=== PATIENT | female | born 1930 | race Asian ===

== ENCOUNTER 2018-12-10 02:35 | Inpatient (IN) | payer MEDICARE, MEDICAID ==
[~2018-12-10] VITALS: Ht 157.5 cm; Wt 60.3 kg
[2018-12-10 02:35] VITALS: BP 134/62
--- NOTE | 2018-12-10 02:35 | NUR ---
ED Nurse Note: Pt was BIBA from SNF. C/O fever today. Temp 100.8 at this time, Bp 134/62, Hr 114. Pt had Hx of left hip fracture few days ago which has bruises noted on left thigh. Pt is awake with drawsy at this time.
[2018-12-10] MEDS ORDERED: ASPIR 8181 MG ORAL (02:44)
[2018-12-10] MEDS ORDERED: BACLOFEN10 MG ORAL (02:44)
[2018-12-10] MEDS ORDERED: Acetaminophen 650 MG SUPP RECTAL ONE (02:45)
--- NOTE | 2018-12-10 02:48 | NUR ---
ED Nurse Note: Blood sample collected and sent to Lab.
[2018-12-10] MEDS ORDERED: VITAMIN D1000 UNI1 ORAL (02:50)
[2018-12-10] MEDS ORDERED: SINGULAIR10 MG ORAL (02:50)
[2018-12-10] MEDS ORDERED: MOBIC15 MG ORAL (02:50)
[2018-12-10] MEDS ORDERED: LEVOTHYROXINE100 MC1 PO (02:50)
[2018-12-10] MEDS ORDERED: TRAMADOL HCL50 MG ORAL (02:50)
[2018-12-10] MEDS ORDERED: CYMBALTA30 MG ORAL (02:50)
[2018-12-10] MEDS ORDERED: IRON325 M1 PO (02:50)
[2018-12-10] MEDS ORDERED: NAMENDA10 MG ORAL (02:50)
[2018-12-10] MEDS ORDERED: LYRICA75 M1 ORAL (02:50)
[2018-12-10] MEDS ORDERED: CALCIUM + VITA1 EAC1 PO (02:50)
[2018-12-10] MEDS ORDERED: MELATONIN3 MG ORAL (02:57)
[2018-12-10] MEDS ORDERED: METFORMIN ER G500 MG PO (02:57)
[2018-12-10] MEDS ORDERED: EXELON1 EACH TD (02:57)
[2018-12-10 03:07] LABS: HEMATOCRIT 34.3 % (37.0-47.0); HEMOGLOBIN 11.3 G/DL (12.0-16.0); MEAN CORPUSCULAR VOLUME 93 FL (80-99); PLATELET COUNT 384 K/UL (150-450); RED CELL DISTRIBUTION WIDTH 12.6 % (11.6-14.8); WHITE BLOOD COUNT 17.5 K/UL (4.8-10.8)
[2018-12-10 03:12] LABS: ANION GAP 7 mmol/L (5-15); BLOOD UREA NITROGEN 31 mg/dL (7-18); CALCIUM 9.1 MG/DL (8.5-10.1); CARBON DIOXIDE 26 MMOL/L (21-32); CHLORIDE 102 MMOL/L (98-107); CREATININE 1.2 MG/DL (0.55-1.30); POTASSIUM 3.8 MMOL/L (3.5-5.1); SODIUM 135 MMOL/L (136-145)
--- NOTE | 2018-12-10 03:15 | NUR ---
ED Nurse Note: Urine sample collected and sent to Lab.
--- NOTE | 2018-12-10 03:15 | Emergency Room Report ---
History of Present Illness General Chief Complaint: Fever Source: Medical Record, EMS Present Illness HPI Patient is brought to the emergency department by EMS for fever. Apparently she was just discharged from [facility] for pelvic fracture earlier yesterday. Her temperature was 103 at the senior care facility. The patient is unable to give any history. History of diabetes, hypertension, urinary retention, dementia A POLST is reviewed which designates selective treatment. Allergies: Coded Allergies: No Known Allergies (Unverified , 12/10/18) Patient History Past Medical History: see triage record, old chart reviewed Social History Narrative [place] - DNR Reviewed Nursing Documentation: PMH: Agreed; PSxH: Agreed Nursing Documentation-PMH Hx Hypertension: Yes Hx Diabetes: Yes Hx Gastrointestinal Problems: Yes - GASTRITIS Review of Systems All Other Systems: limited Physical Exam Vital Signs Date Time Temp Pulse Resp B/P (MAP) Pulse Ox O2 Delivery O2 Flow Rate FiO2 12/10/18 02:30 100.8 112 14 125/61 (82) 96 Room Air Sp02 EP Interpretation: reviewed, normal General Appearance: other - attemps to answer, Chronically Ill Head: normocephalic Eyes: bilateral eye normal inspection, bilateral eye PERRL, bilateral eye EOMI ENT: dry mucus membranes Neck: supple Respiratory: lungs clear, normal breath sounds Cardiovascular #1: regular rate, rhythm Cardiovascular #2: 2+ radial (R) Gastrointestinal: normal inspection, normal bowel sounds, non tender, no mass, non-distended Genitourinary: no CVA tenderness Musculoskeletal: decreased range of motion - All extremities Neurologic: DTRs symmetric, sensory intact, motor weakness - extrem, other - lethargic Psychiatric: depressed affect Skin: warm/dry Medical Decision Making Diagnostic Impression: Primary Impression: Sepsis Qualified Codes: A41.9 - Sepsis, unspecified organism Additional Impressions: UTI (urinary tract infection) Qualified Codes: N39.0 - Urinary tract infection, site not specified Elevated troponin H/O fracture of pelvis ER Course Patient presents with fever. Differential includes sepsis, UTI, pneumonia amongst others. Patient will be evaluated with EKG, chest x-ray and labs. Painter catheter will be passed. Fluid resuscitation will be initiated. Depending on initial results of chest x-ray and urine antibiotics will be started. EKG without injury. Elevated WBC and lactic acid. Lab called with + troponin. Aspirin ordered. CXR neg. Start antibiotics. Sepsis re-eval - good cap fill, HR improved, antibiotics ordered. Mentation unchanged. 3:34 NB - second lactic acid performed prior to initial bolus. Admit tele Dr. David. Laboratory Tests Test 12/10/18 02:40 12/10/18 03:15 12/10/18 04:02 White Blood Count 17.5 K/UL (4.8-10.8) H Red Blood Count 3.70 M/UL (4.20-5.40) L Hemoglobin 11.3 G/DL (12.0-16.0) L Hematocrit 34.3 % (37.0-47.0) L Mean Corpuscular Volume 93 FL (80-99) Mean Corpuscular Hemoglobin 30.6 PG (27.0-31.0) Mean Corpuscular Hemoglobin Concent 33.0 G/DL (32.0-36.0) Red Cell Distribution Width 12.6 % (11.6-14.8) Platelet Count 384 K/UL (150-450) Mean Platelet Volume 6.5 FL (6.5-10.1) Neutrophils (%) (Auto) % (45.0-75.0) Lymphocytes (%) (Auto) % (20.0-45.0) Monocytes (%) (Auto) % (1.0-10.0) Eosinophils (%) (Auto) % (0.0-3.0) Basophils (%) (Auto) % (0.0-2.0) Neutrophils % (Manual) Pending Lymphocytes % (Manual) Pending Platelet Estimate Pending Platelet Morphology Pending Prothrombin Time 10.2 SEC (9.30-11.50) Prothrombin Time INR 1.0 (0.9-1.1) PTT 28 SEC (23-33) Sodium Level 135 MMOL/L (136-145) L Potassium Level 3.8 MMOL/L (3.5-5.1) Chloride Level 102 MMOL/L (98-107) Carbon Dioxide Level 26 MMOL/L (21-32) Anion Gap 7 mmol/L (5-15) Blood Urea Nitrogen 31 mg/dL (7-18) H Creatinine 1.2 MG/DL (0.55-1.30) Estimate Glomerular Filtration Rate mL/min (>60) Glucose Level 240 MG/DL (74-106) H Lactic Acid Level 2.20 mmol/L (0.4-2.0) H Pending Calcium Level 9.1 MG/DL (8.5-10.1) Phosphorus Level 2.4 MG/DL (2.5-4.9) L Magnesium Level 1.9 MG/DL (1.8-2.4) Total Bilirubin 1.0 MG/DL (0.2-1.0) Aspartate Amino Transferase (AST) 22 U/L (15-37) Alanine Aminotransferase (ALT) 16 U/L (12-78) Alkaline Phosphatase 91 U/L (46-116) Total Creatine Kinase 51 U/L (26-308) Troponin I 0.101 ng/mL (0.000-0.056) Pro-B-Type Natriuretic Peptide 522 pg/mL (0-125) H Total Protein 6.4 G/DL (6.4-8.2) Albumin 3.0 G/DL (3.4-5.0) L Globulin 3.4 g/dL Albumin/Globulin Ratio 0.9 (1.0-2.7) L Lipase 99 U/L (73-393) Urine Color Yellow Urine Appearance Cloudy Urine pH 5 (4.5-8.0) Urine Specific [place] 1.015 (1.005-1.035) Urine Protein 2+ (NEGATIVE) H Urine Glucose (UA) Negative (NEGATIVE) Urine Ketones 1+ (NEGATIVE) H Urine Blood 5+ (NEGATIVE) H Urine Nitrite Positive (NEGATIVE) H Urine Bilirubin Negative (NEGATIVE) Urine Urobilinogen Normal MG/DL (0.0-1.0) Urine Leukocyte Esterase 3+ (NEGATIVE) H Urine RBC 5-10 /HPF (0 - 2) H Urine WBC Tntc /HPF (0 - 2) H Urine Squamous Epithelial Cells Few /LPF (NONE/OCC) Urine Bacteria Many /HPF (NONE) H EKG Diagnostic Results Rate: tachycardiac Rhythm: NSR ST Segments: no acute changes Rhythm Strip Diag. Results EP Interpretation: yes Rhythm: no PVC's, no ectopy, other - ST Chest X-Ray Diagnostic Results Chest X-Ray Diagnostic Results : Chest X-Ray Ordered: Yes # of Views/Limited/Complete: 1 View Indication: Other EP Interpretation: Yes Interpretation: no effusion, no pneumothorax, other - poor insp and rotation Impression: Other Electronically Signed by: Electronically signed by Dave Gutierrez MD Last Vital Signs Date Time Temp Pulse Resp B/P (MAP) Pulse Ox O2 Delivery O2 Flow Rate FiO2 12/10/18 08:00 98.7 18 112/54 (73) 98 12/10/18 06:23 Nasal Cannula 2.0 12/10/18 05:57 104 Status: improved Disposition: ADMITTED INPATIENT Condition: Serious Referrals: NON PHYSICIAN (PCP) Dave Gutierrez MD Dec 10, 2018 03:15
[2018-12-10 03:28] LABS: ALANINE AMINOTRANSFERASE 16 U/L (12-78); ALBUMIN/GLOBULIN RATIO 0.9 (1.0-2.7); ALKALINE PHOSPHATASE 91 U/L (46-116); ASPARTATE AMINO TRANSFERASE 22 U/L (15-37); CREATINE KINASE 51 U/L (26-308); PHOSPHORUS 2.4 MG/DL (2.5-4.9)
[2018-12-10 03:30] LABS: APPEARANCE,URINE CLOUDY; BILIRUBIN, URINE NEGATIVE (NEGATIVE); COLOR,URINE YELLOW; GLUCOSE, URINE (UA) NEGATIVE (NEGATIVE); KETONES,URINE 1+ (NEGATIVE); LEUKOCYTE ESTERASE ,URINE 3+ (NEGATIVE); NITRITE,URINE POSITIVE (NEGATIVE); PH,URINE 5 (4.5-8.0); PROTEIN,URINE 2+ (NEGATIVE); UROBILINOGEN,URINE NORMAL MG/DL (0.0-1.0)
[2018-12-10] MEDS ORDERED: Piperacillin/Tazobactam 3.375 GM in NS 110 ML IVPB ONE (03:45)
--- NOTE | 2018-12-10 04:04 | Diagnostic Imaging Report ---
EXAM: XR Chest, 1 View CLINICAL HISTORY: ALOC TECHNIQUE: Frontal view of the chest. COMPARISON: none FINDINGS: Lungs: No focal infiltrates in the lungs. Pleural space: Unremarkable. No pneumothorax. Heart: Borderline heart enlargement. Mediastinum: Mild rightward bowing of the trachea, suggesting an enlarged thyroid or other mediastinal mass Bones/joints: Old right 7th rib fracture Vasculature: Calcified and tortuous thoracic aorta. IMPRESSION: No acute findings.
--- NOTE | 2018-12-10 04:10 | NUR ---
ED Nurse Note: Repeat Lactic sent to Lab.
--- NOTE | 2018-12-10 05:50 | NUR ---
TRANSFER TO FLOOR: Patient transferred to [facility]/ 208-1 as ordered. Report given to Frieda/MAGGIE. Belongings sent with Pt and rechecked with RN.
[2018-12-10 06:00] VITALS: BP 120/60
--- NOTE | 2018-12-10 06:00 | NUR ---
NURSE NOTES: Patient was brought up from ER via gurney accompanied by 2 RN to room 208.. Patient is alert, but non verbal at this time. no S/Sx of pain is noted via FLACC scale. On oxygen 2L/min via N/C. Noted Painter cath. urine appears to be cloudy. Noted with IV site to right AC 8 g and left hand 20g. Site is intact. Routine admission care provided. Bed side report received from MAGGIE Oropeza. Inventory signed. Will continue to monitor.
--- NOTE | 2018-12-10 06:16 | NUR ---
NURSE NOTES: Paged Dr David, awaiting for call at this time.
[2018-12-10] MEDS ORDERED: traMADol 50mg tab ORAL PRN (06:30)
--- NOTE | 2018-12-10 07:24 | NUR ---
HAND-OFF: Report given to Slime Saha RN.
--- NOTE | 2018-12-10 07:30 | NUR ---
NURSE NOTES: Report received from Frieda SERRANO. Pt in bed awake and noted with slurred speech and left side of lip droop BUT NO WEAKNESS TO ALL EXTREMITIES. IV in RAC 18g and Left hand 22G SL. On room air. No c/o pain. bilateral side rails x2 up and brake engaged. F/C 16fr intact and patent and noted with blood tinged urine. No skin issue noted. Dr. Powell called for new one set of slurred speech and facial droop. Will continue to plan of care.
[2018-12-10 08:00] VITALS: BP 112/54
[2018-12-10] MEDS ORDERED: Vancomycin 500mg/D5W 110ml IVPB SCH ×2 (08:00)
--- NOTE | 2018-12-10 08:10 | NUR ---
NURSE NOTES: patient to radiology dept for Brain CT
--- NOTE | 2018-12-10 08:33 | NUR ---
NURSE NOTES: Pt returned back from CT scan. No signs of distress noted.
[2018-12-10] MEDS ORDERED: Vitamin D 1000 IU Tab ORAL SCH (09:00)
[2018-12-10] MEDS ORDERED: Memantine 10mg tab ORAL SCH (09:00)
[2018-12-10] MEDS ORDERED: Meloxicam 15 MG TAB ORAL SCH (09:00)
[2018-12-10] MEDS ORDERED: Aspirin EC 81mg tab ORAL SCH (09:00)
[2018-12-10] MEDS ORDERED: Lyrica 75mg cap ORAL SCH (09:00)
[2018-12-10] MEDS ORDERED: Heparin 5000 units/ml inj SUBQ SCH (09:00)
[2018-12-10] MEDS ORDERED: DULoxetine 30mg cap ORAL SCH (09:00)
--- NOTE | 2018-12-10 09:05 | Diagnostic Imaging Report ---
EXAM: CT Head Without Intravenous Contrast. CLINICAL HISTORY: SLUR TECHNIQUE: Axial computed tomography images of the head/brain without intravenous contrast. CTDI is 70.5 mGy and DLP is 1389 mGy-cm. One or more of the following dose reduction techniques were used: automated exposure control, adjustment of the mA and/or kV according to patient size, use of iterative reconstruction technique. COMPARISON: No relevant prior studies available. FINDINGS: Brain: There is a 2.0 x 0.9 x 1.2 cm acute/subacute parenchymal hematoma in the right frontal lobe, with adjacent edema. No other site of intracranial hemorrhage. No significant mass effect or midline shift. Mild to moderate small vessel ischemic disease and chronic bilateral basal ganglia lacunar infarcts. Ventricles: Unremarkable. No ventriculomegaly. Bones: No acute fracture. Sinuses: No acute sinusitis. Mastoid air cells: Unremarkable as visualized. No mastoid effusion. IMPRESSION: Parenchymal hemorrhage in right frontal lobe with adjacent edema. Absent any trauma history, findings raise concern for underlying parenchymal lesion. Recommend further evaluation with gadolinium-enhanced brain MRI. No significant mass effect or midline shift. Mild to moderate small vessel ischemic disease. <MYCVCSECTION> Critical Value Communications 12/10/18 09:44 Call Doctor Regarding Intracranial Hemorrhage, called Sherry STRAUSS on 12/10 09:44 (-07:00)
--- NOTE | 2018-12-10 09:15 | NUR ---
NURSE NOTES: Noted Brain Ct result with frontal lobe hemorrhage and Dr. Powell paged for result and awaiting for reply
--- NOTE | 2018-12-10 09:30 | NUR ---
NURSE NOTES: Dr. Powell came to see the patient and informed patient's responsible alliance party, Ishaan who is a grand son of the patient. Hold all meds now and Dr. Powell also called [facility] for process to transfer the pt to the hospital. And Faxed the patient's face sheet to admitting office at [facility].
--- NOTE | 2018-12-10 09:50 | NUR ---
NURSE NOTES: Pt AOX2 or 3 and able to make needs known. No apparent weakness in all extremities noted. Still having slurred speech and left side lip droop. Denied any pain or nausea. Pupils are sized equally with 3mm on both and responsive to light. Head of bed placed flat. Will continue to plan of care.
--- NOTE | 2018-12-10 10:40 | NUR ---
NURSE NOTES: Daniel at the transferring dept at [facility] called to confirm the bed available. He states that he will call in 40-50mis for bed availability.
--- NOTE | 2018-12-10 11:31 | NUR ---
NURSE NOTES: Daniel at the transfer dept at [facility] and he states that the bed is not availabe yet and he will call [facility] when the bed is available but it would be later than 12:30pm and the patient is directly admitted to Neuro ICU from [facility] tele.
--- NOTE | 2018-12-10 11:33 | NUR ---
NURSE NOTES: Pt denied any pain or nausea. Pt awake and alert x3 and responsive to verbal stimuli. Family, grandson is at the bedside and updated the information
[2018-12-10 12:00] VITALS: BP 115/60
--- NOTE | 2018-12-10 13:33 | NUR ---
NURSE NOTES: Spoke to Daniel from transfer dept at [facility] and per him, the beds in the ICU currently full and he will call back once a bed is available for the patient.
[2018-12-10] MEDS ORDERED: Piperacillin/Tazobactam 3.375 GM in NS 110 ML IVPB SCH (14:00)
--- NOTE | 2018-12-10 14:58 | NUR ---
NURSE NOTES: Called [facility] ([phone]) for transportation [facility]. Patient assigned to room 8-2 ICU for [facility]. ETA is 16:30. Endorsed to primary nurse.
--- NOTE | 2018-12-10 15:00 | NUR ---
NURSE NOTES: Room number at the [facility] Neuro-ICU received, and it will be [id number] from Daniel, and [facility] ambulance called and ETA will be 4:30pm. [facility] called again for the report but Daniel asked RN to call back after 4pm. Will continue to follow up with current plan of care.
[2018-12-10 16:00] VITALS: BP 138/61
--- NOTE | 2018-12-10 16:13 | NUR ---
NURSE NOTES: Report given to Karin SERRANO at the [facility] including The name, time and dose of meds given at OM, F/C CATH INSERTION DATE, IV sites, Mental status etc. Answered all questions RN asked.
--- NOTE | 2018-12-10 16:30 | History and Physical Report ---
DATE OF ADMISSION: 12/10/2018 CHIEF COMPLAINT: Sepsis, acute OK. HISTORY OF PRESENT ILLNESS: The patient is an 88-year-old female. She was recently hospitalized at an outside hospital after sustaining a fall and a pelvic fracture. She has a prior history of diabetes, asthma, and gastritis. At the correction facility, she had developed fever, was transferred to the emergency room. On evaluation there, she was febrile to 100.8. She had a white count of 18,000, lactic acid level of 2.2, troponin of 0.101. Her x-rays were clear, but she had evidence of urinary tract infection. In light of the elevated troponin and sepsis, she is now admitted for further evaluation and care. PAST MEDICAL HISTORY: As above. PAST SURGICAL HISTORY: Unknown. CURRENT MEDICATIONS: Reconciled and reviewed. ALLERGIES: None. FAMILY HISTORY: None. SOCIAL HISTORY: Negative for tobacco, ethanol, or drugs. According to the chart, the patient is DNR. REVIEW OF SYSTEMS: Unobtainable as patient is confused. PHYSICAL EXAMINATION: VITAL SIGNS: T-max 100.8, T current is 99, pulse 114, respirations 17, and blood pressure 120/60. GENERAL: The patient is a chronically ill-appearing, elderly female, in no apparent distress. HEART: Regular rate and rhythm. LUNGS: Clear. ABDOMEN: Soft, nontender, and nondistended. EXTREMITIES: Without clubbing, cyanosis, or edema. LABORATORY DATA: UA showed too numerous to count wbc's. White count 18,000, hemoglobin 11, hematocrit 34, and platelets 384. Coags normal. Sodium 135, potassium 3.8. Lactic acid was 2.2. Troponin 0.101. ASSESSMENT: This is an elderly female admitted with complaints of sepsis secondary to urinary tract infection. She has an acute myocardial infarction likely related to demand ischemia from her sepsis. She has a history of asthma, hypertension, and gastroesophageal reflux disease. PLAN: IV antibiotic therapy. Follow up pending cultures. IV hydration. Check a swallow evaluation. We will consider head CT as the patient is confused. Swallow evaluation will also be ordered. Continue DNR as per POLST in the chart. Cardiology and Infectious Disease consultations will be obtained. Ryan Powell M.D. DR: FROILAN JOB#: [id number] CC:
--- NOTE | 2018-12-10 16:45 | Consultation ---
DATE OF CONSULTATION: 12/10/2018 INFECTIOUS DISEASES CONSULTATION This consult is for coverage of Dr. Davis. PRIMARY ATTENDING PHYSICIAN: Ryan Powell M.D. REASON FOR CONSULTATION: Sepsis and UTI. HISTORY OF PRESENT ILLNESS: An 88-year-old female admitted from a group home today because of fever, had a temperature of 104.5 degrees, tachycardia, and decrease in O2 saturation. The patient had a recent history of pelvic fracture, poor historian. PAST MEDICAL HISTORY: Significant for diabetes mellitus, hypertension, hypothyroidism, osteoarthritis, and gastritis. ALLERGIES: No known drug allergies. MEDICATIONS: Getting Singulair, Zosyn, aspirin, baclofen, vitamin D, Cymbalta, ferrous sulfate, , memantine, heparin, vancomycin, tramadol, levothyroxine, and sodium chloride. SOCIAL HISTORY: custodial resident. No other history obtainable by the patient. PHYSICAL EXAMINATION: VITAL SIGNS: Temperature is 98.7 degrees, T-max in hospital was 100.8 degrees, heart rate is 104, and blood pressure 112/54. GENERAL APPEARANCE: No acute distress. She seems to be thin. HEAD AND NECK: Douglass conjunctiva. Puffy lower eyelid. HEART: Tachycardia. LUNGS: Clear. ABDOMEN: Soft and nontender. EXTREMITIES: No edema. She has muscle atrophy. NEUROLOGIC: Awake, alert, minimally responsive. LABORATORY AND DIAGNOSTIC DATA: WBC 17.5, hemoglobin 11.3, hematocrit 34.3, and platelets 384,000. Lactic acid 2.5. Sodium 135, potassium 3.8, chloride 102, bicarbonate 26, BUN 31, creatinine 1.2, and glucose is 240. Troponin is modestly elevated at 0.101. Albumin is 3. Chest x-ray showed no acute finding. CT scan of the head showed right frontal intracranial hemorrhage. IMPRESSION: Sepsis with fever, leukocytosis, and tachycardia. Source seems to be urinary tract infection. The patient had intracranial hemorrhage, hypothyroidism, acidosis, diabetes mellitus, hypertension, Alzheimer, and history of pelvic fracture. RECOMMENDATION: We will continue with vancomycin and Zosyn. We will follow up the cultures and narrow antibiotic. At the end of my exam, I thank Dr. Powell for involving me in the care of this patient. Chico Lucero M.D. DR: Flo JOB#: [id number] CC:
--- NOTE | 2018-12-10 17:30 | NUR ---
Discharge: Patient is being transferred from medical care to [facility] Neuro ICU. Awake, alert and oriented x3. After care instructions, including referral to community resources were given. Patient verbalized understanding of After care instructions; at this time patient does not request medications, equipment or placement. Patient signed patient consent in the medical record for patient destination upon discharge. All medical devices such as conveyor monitor and ID band were removed but IV were remained per RN from [facility]'s request. Patient picked up by [facility] ambulance personnels via gurney. Pt denied any pain or any acute distress noted.
[2018-12-10] MEDS ORDERED: Montelukast 10mg tablet ORAL SCH (21:00)
--- NOTE | 2018-12-11 14:06 | Discharge Summary ---
Discharge Summary Discharge Summary _ DATE OF ADMISSION: 12/10/2018 DATE OF DISCHARGE: 12/10/2018 DISCHARGED BY: Dr. Powell REASON FOR ADMISSION: 88 years old female, resident of [facility] facility, with past medical history of diabetes mellitus, asthma, gastritis, was recently hospitalized in the outside hospital after she sustained fall and pelvic fracture. Patient with DNR/DNI status as per POLST. After stabilization , she went back to [facility] facility. At the [facility] facility she developed fever and was transferred to the emergency room . Upon evaluation patient was found to be febrile with temperature 100.8. Laboratory work-up revealed leukocytosis WBC 18, lactic acid 2.2. Chest x-ray revealed no evidence of acute cardiopulmonary pathology. Urinalysis revealed evidence of UTI. Troponin elevated -0.101. EKG revealed sinus rhythm , no acute ischemic changes. Septic work-up initiated . Patient received fluid challenge, pancultured and started on empiric antibiotics. Patient subsequently admitted to telemetry floor for further management. CONSULTANTS: ID specialist Dr. Montalvo HOSPITAL COURSE: Patient admitted to telemetry floor. CT of the head revealed parenchymal hemorrhage in right frontal lobe with adjacent edema. In absence of any trauma history, findings raised concern for underlying parenchymal lesion. Recommend further evaluation with gadolinium-enhanced brain MRI. No significant mass effect or midline shift. Mild to moderate small vessel ischemic disease. Patient immediately was placed on waiting list for transfer to higher level of care/ neurology ICU. ASA and Heparin were stopped.w her bed became available. Hemodynamic status was closely monitored and remained stable. Neuro checks were done frequently. Repeated lactic acid 2.5. At the time of this dictation blood culture showed gram-negative rods. Urine culture revealed gram-negative bacilli. Septicemia was likely due to UTI. Patient was on empiric antibiotic as per ID specialist recommendation. Antibiotic provided as per infectious disease specialist recommendations. Supplemental oxygen titrated to keep pulse oximetry above 92%. Pulmonary toilet was on standby as needed.No evidence of asthma exacerbation. Pain management was addressed. Supportive care provided. Patient was subsequently transferred to a higher level of care. FINAL DIAGNOSES Sepsis due to UTI ( present on admission0 Septicemia /gram-negative due to UTI Intracranial hemorrhage Elevated troponin, likely acute myocardial infarction secondary to demand ischemia due to sepsis Asthma Hypertension GERD Alzheimer's dementia History of pelvic fracture Lactic acidosis DISCHARGE MEDICATIONS: See Medication Reconciliation list. DISCHARGE INSTRUCTIONS: Patient was transferred to [facility] neuro ICU via [facility] ambulance. I have been assigned to dictate discharge summary for this account. I was not involved in the patient's management. Maddy Ford NP Dec 11, 2018 14:06
--- NOTE | 2018-12-13 16:31 | Cardiology Report ---
APPROVED REPORT EKG Measurement Heart [id number] Sinus tachycardia Right bundle branch block Abnormal ECG
== END 2018-12-10 17:30 | disposition short-term general hospital (02) | DRG 871 ==
LOC: EDBD 02:35 → EMR 02:58 → 2E 03:08 → EDBEDREQ 05:02
DX: A41.9 Sepsis, unspecified organism (principal); I21.A1 Myocardial infarction type 2; N39.0 Urinary tract infection, site not specified; I62.9 Nontraumatic intracranial hemorrhage, unspecified; B96.89 Other specified bacterial agents as the cause of diseases classified elsewhere; J45.909 Unspecified asthma, uncomplicated; I10 Essential (primary) hypertension; K21.9 Gastro-esophageal reflux disease without esophagitis; G30.9 Alzheimer's disease, unspecified; F02.80 Dementia in other diseases classified elsewhere, unspecified severity, without behavioral disturbance, psychotic disturbance, mood disturbance, and anxiety; E03.9 Hypothyroidism, unspecified; Z79.82 Long term (current) use of aspirin; Z66 Do not resuscitate
CPT/HCPCS: 36415; 70450; 71045; 80053; 81003; 82550; 83605; 83690; 83735; 83880; 84100; 84484; 85007; 85025; 85610; 85730; 87040; 87081; 87086; 87181; 93005; 96361; 96365; 96368; 99285